=== PATIENT | male | born 1960 | race Caucasian/White ===

== ENCOUNTER 2017-07-19 01:44 | Emergency (ER) | payer MEDICARE, OTHER ==
[~2017-07-19] VITALS: Ht 180.3 cm; Wt 80.0 kg
[~2017-07-19 01:44] MED LIST: 1-ME1LIQ PO; AMLO10 PO; BENZ1 PO; DEPA500T3 PO; GLUCTAB PO; HALO5 PO; HALO50P IM; METF500 PO; PRAV20 PO
[2017-07-19 01:50] VITALS: BP 146/90; PULSE 109; RESP 18; TEMP 98.6; O2SAT 94
--- NOTE | 2017-07-19 02:06 | PD ---
HPI Chief Complaint: Fall Time Seen by Provider: 02:00 Travel History International Travel<30 days: No Contact w/Intl Traveler<30days: No Traveled to known affect area: No History of Present Illness HPI 57-year-old male presents to the emergency department by nonemergent transport for evaluation of facial injury status post fall. Patient is a resident at [facility] with history of schizoaffective disorder. Medical staff noticed that he had epistaxis and bruising to the face. Patient on review of monitoring camera's was identified to have had a trip and fall hitting his face against a chair. There is no apparent loss of consciousness and patient was able to get up and ambulate on his own after the fall. Patient reports that he lost his balance and had a trip and fall. Patient denies head pain and face pain dental pain neck pain back pain chest pain abdominal pain or extremity pain or injury. Patient reports he has had loss of maxillary dentition pre-existing and prior to this fall. PFSH Past Medical History Narrative Medical Diabetes dyslipidemia schizoaffective disorder hypertension; nursing notes reviewed Autoimmune Disease: No Bipolar Disorder: Yes Anxiety: No Depression: Yes Cancer: No Cardiovascular Problems: No High Cholesterol: Yes Diabetes: Yes (type 2 metformin) Patient Takes Glucophage: Yes (metformin) Diminished Hearing: No Endocrine: Yes Genitourinary: No Hypertension: Yes Immune Disorder: No Musculoskeletal: Yes (HX OF FRACTURED ARMS, LEFT AND RIGHT) Neurologic: No Psychiatric: Yes (medication non compliance) Reproductive: No Respiratory: No Schizophrenia: Yes Tetanus Vaccination: Unknown Influenza Vaccination: No PNEUMOCCOCAL Vaccine (Year): 2 Past Surgical History Tonsillectomy: Yes Other Surgery: No ( ) Social History Alcohol Use: No (HX OF ALCOHOL ABUSE IN PAST) Tobacco Use: No Substance Use: No Allergies-Medications (Allergen,Severity, Reaction): Coded Allergies: No Known Allergies (Verified Adverse Reaction, Unknown, 07/19/17) Reported Meds & Prescriptions Reported Meds & Active Scripts Active Reported Atropine Opth Drops 1% Soln Unknown Dose SL BID Clozaril (Clozapine) 25 Mg Tab 150 Mg PO DAILY Clozaril (Clozapine) 100 Mg Tab 300 Mg PO HS Calcium/Vitamin D (Calcium Carbonate-Vitamin D) 500-200 Mg-Unit Tab 1 Tab PO BID Aspirin 81 Mg Chew 81 Mg CHEW DAILY Pravastatin 40 Mg Tab 40 Mg PO HS Miralax (Polyethylene Glycol 3350) 17 Gram Powd.pack 17 Gm PO DAILY Metformin (Metformin HCl) 1,000 Mg Tab 1,000 Mg PO BID Ativan (Lorazepam) 1 Mg Tab 1 Mg PO BID [place] Carbonate 150 Mg Cap 150 Mg PO BID Lisinopril 2.5 Mg Tab 2.5 Mg PO DAILY Colace (Docusate Sodium) 100 Mg Capsule 100 Mg PO BID Review of Systems Except as stated in HPI: all other systems reviewed are Neg Physical Exam Narrative GENERAL: Well-developed well-nourished disheveled male in no acute distress no respiratory distress GCS 15 with intermittent perseverating speech SKIN: Warm and dry. HEAD: Atraumatic. Normocephalic. No scalp soft tissue swelling abrasion laceration or bony abnormalities. EYES: Pupils equal and round. Extraocular muscles intact. No scleral icterus. No injection or drainage. No periorbital rim bony step-off or ecchymosis. ENT: No nasal bleeding or discharge. No active epistaxis scant amount of blood in the nares with bruising to the bridge of the nose. Mucous membranes pink and moist. Airway is patent. Patient has multiple missing dentition but no acute injury or gingival laceration contusion identified. There is no malocclusion mandible is nontender and appears to be intact to direct palpation. NECK: Trachea midline. No JVD. No midline tenderness to direct palpation along the cervical spine no bony step-off. CARDIOVASCULAR: Regular rate and rhythm. RESPIRATORY: No accessory muscle use. Clear to auscultation. Breath sounds equal bilaterally. GASTROINTESTINAL: Abdomen soft, non-tender, nondistended. Hepatic and splenic margins not palpable. MUSCULOSKELETAL: Extremities without clubbing, cyanosis, or edema. No obvious deformities. NEUROLOGICAL: Awake and alert. No obvious cranial nerve deficits. Motor grossly within normal limits. Five out of 5 muscle strength in the arms and legs. Normal speech. PSYCHIATRIC: Appropriate mood and affect; insight and judgment normal. Data Data Last Documented VS Vital Signs Date Time Temp Pulse Resp B/P (MAP) Pulse Ox O2 Delivery O2 Flow Rate FiO2 07/19/17 01:50 98.6 109 18 146/90 (108) [address] Brain W/O Iv Contrast(Rout) (07/19/17 ) Ct Facial Bones W/O Iv Cont (07/19/17 ) Ed Discharge Order (07/19/17 03:21) MDM Medical Decision Making Medical Screen Exam Complete: Yes Emergency Medical Condition: Yes Medical Record Reviewed: Yes Interpretation(s) Last Impressions Maxillofacial CT 07/19/17 0000 Signed Impressions: Service Date/Time: July 02:37 - CONCLUSION: 1. No acute findings. Esau Newell MD Head CT 07/19/17 0000 Signed Impressions: Service Date/Time: July 02:35 - CONCLUSION: 1. No acute findings. Stable remote right frontal lobe encephalomalacia. Esau Newell MD Vital Signs Date Time Temp Pulse Resp B/P (MAP) Pulse Ox O2 Delivery O2 Flow Rate FiO2 07/19/17 01:50 98.6 109 18 146/90 (108) 94 Differential Diagnosis Minor closed head injury, ICH, facial contusion, facial fracture Narrative Course Patient with on syncopal trip and fall with facial bruising and soft tissue swelling with report of epistaxis; imaging studies ordered Imaging study reveals no acute abnormality patient stable for outpatient management and is returned and the care of the [facility] staff counselor Diagnosis Primary Impression: Minor head injury Qualified Codes: S00.90XA - Unspecified superficial injury of unspecified part of head, initial encounter Additional Impression: Facial contusion Qualified Codes: S00.83XA - Contusion of other part of head, initial encounter Referrals: Primary Care Physician call for appointment Patient Instructions: General Instructions Additional Instructions: Apply ice intermittently to areas of soft tissue swelling Follow head injury precautions for 24 hours Continue chronic medications as chronically prescribed Avoid blowing her nose for 24 hours Return to the emergency department for any concerns or change in condition May take as tolerated acetaminophen or ibuprofen for fever 100.4F or greater or for minor pain Disposition: 67 DISC TO [facility] Condition: Stable Letty Acosta MD Jul 19, 2017 02:06
[2017-07-19] MEDS ORDERED: COLA100C5 PO (02:21)
[2017-07-19] MEDS ORDERED: ASPI-516 CHEW (02:21)
[2017-07-19] MEDS ORDERED: ATRO1SOL11 SL ×2 (02:21→02:23)
[2017-07-19] MEDS ORDERED: POLY17PO3 PO (02:21)
[2017-07-19] MEDS ORDERED: METF1000 PO (02:21)
[2017-07-19] MEDS ORDERED: PRAV40TA2 PO (02:21)
[2017-07-19] MEDS ORDERED: LITH150C PO (02:21)
[2017-07-19] MEDS ORDERED: LISI2.5T3 PO (02:21)
[2017-07-19] MEDS ORDERED: CALC500T43 PO (02:21)
[2017-07-19] MEDS ORDERED: CLOZ100T PO (02:21)
[2017-07-19] MEDS ORDERED: LORA-474 PO (02:21)
[2017-07-19] MEDS ORDERED: CLOZ25TA PO (02:21)
--- NOTE | 2017-07-19 03:09 | RADRPT ---
EXAM DATE/TIME: 07/19/2017 02:35 [facility] COMPARISON: CT BRAIN W/O CONTRAST, September 15, 2011, 5:37. INDICATIONS : Trauma, fall. RADIATION DOSE: 56.18 CTDIvol (mGy) MEDICAL HISTORY : Hypertension. SURGICAL HISTORY : None. ENCOUNTER: Initial ACUITY: 1 day PAIN SCALE: 2/10 LOCATION: Bilateral cranial TECHNIQUE: Multiple contiguous axial images were obtained of the head. Using automated exposure control and adj ustment of the mA and/or kV according to patient size, radiation dose was kept as low as reasonably a chievable to obtain optimal diagnostic quality images. DICOM format image data is available electro nically for review and comparison. FINDINGS: CEREBRUM: The ventricles are normal for age. No evidence of midline shift, mass lesion, hemorrhage or acute in farction. No extra-axial fluid collections are seen. POSTERIOR FOSSA: The cerebellum and brainstem are intact. The 4th ventricle is midline. The cerebellopontine angle i s unremarkable. EXTRACRANIAL: The visualized portion of the orbits is intact. SKULL: The calvaria is intact. No evidence of skull fracture. CONCLUSION: 1. No acute findings. Stable remote right frontal lobe encephalomalacia. Esau Newell MD on July 19, 2017 at 3:06 Board Certified Radiologist. This report was verified electronically.
--- NOTE | 2017-07-19 03:11 | RADRPT ---
EXAM DATE/TIME: 07/19/2017 02:37 [facility] COMPARISON: No previous studies available for comparison. INDICATIONS : Trauma, fall. RADIATION DOSE: 36.44 CTDIvol (mGy) MEDICAL HISTORY : Hypertension. SURGICAL HISTORY : None. ENCOUNTER: Initial ACUITY: 1 day PAIN SCORE: 5/10 LOCATION: facial TECHNIQUE: Volumetric scanning of the facial bones was performed. Using automated exposure control and adjustme nt of the mA and/or kV according to patient size, radiation dose was kept as low as reasonably achiev able to obtain optimal diagnostic quality images. DICOM format image data is available electronicall y for review and comparison. FINDINGS: ORBITS: The orbital and infraorbital osseous structures are intact. The retroconal structures have a normal configuration. No radiopaque foreign bodies are seen. NASAL BONE: The nasal bone and maxillary spine are intact ZYGOMATIC ARCHES: Symmetric without evidence of fracture. SINUSES: The maxillary, ethmoid and frontal sinuses are intact. No air-fluid levels seen. NASAL CAVITY: The nasal septum is intact and midline. The lacrimal ducts are intact. SOFT TISSUES: No radiopaque foreign bodies seen. No soft-tissue swelling is seen. INTRACRANIAL: No intracranial air seen. CRIBIFORM PLATE: Grossly intact. CONCLUSION: 1. No acute findings. Esau Newell MD on July 19, 2017 at 3:08 Board Certified Radiologist. This report was verified electronically.
== END 2017-07-19 03:39 ==
LOC: NEPC 01:44
DX: S00.83XA Contusion of other part of head, initial encounter (principal); W01.190A Fall on same level from slipping, tripping and stumbling with subsequent striking against furniture, initial encounter; R04.0 Epistaxis; F25.9 Schizoaffective disorder, unspecified; E11.9 Type 2 diabetes mellitus without complications; E78.5 Hyperlipidemia, unspecified; F31.9 Bipolar disorder, unspecified; I10 Essential (primary) hypertension; Z91.14 Patient's other noncompliance with medication regimen
CPT/HCPCS: 70450; 70486; 99283